=== PATIENT | female | born 1970 | race Caucasian/White ===

== ENCOUNTER 2020-09-22 09:26 | Emergency (ER) | payer BC ==
[~2020-09-22] VITALS: Ht 177.8 cm; Wt 160.6 kg
[2020-09-22 11:01] LABS: URINE BILIRUBIN NEGATIVE (Negative); URINE BLOOD TRACE (Negative); URINE CLARITY CLEAR; URINE COLOR YELLOW; URINE GLUCOSE-RANDOM* NEGATIVE (Negative); URINE KETONES NEGATIVE (Negative); URINE NITRITE-REFLEX NEGATIVE (Negative); URINE PROTEIN (DIPSTICK) TRACE (Negative); URINE UROBILINOGEN 0.2 E.U./dl (0.2-1.0)
[2020-09-22 11:03] LABS: ABSOLUTE NEUTROPHILS 6.8 thou/uL (1.4-8.2); BASOPHILS 0.8 % (0.0-2.0); EOSINOPHILS 1.2 % (0.0-3.0); HEMATOCRIT 35.3 % (37.0-47.0); HEMOGLOBIN 11.3 gm/dL (12.0-15.0); LYMPHOCYTES 21.8 % (24.0-44.0); MCH 23.9 pg (26.0-34.0); MCHC 31.9 g/dL (28.0-37.0); MCV 74.9 fL (80.0-100.0); MONOCYTES 7.1 % (1.0-8.0); PLATELET COUNT 272 thou/uL (150-400); POLYS 69.1 % (36.0-66.0); RBC 4.72 mil/uL (4.20-5.00); RDW 15.8 % (10.5-14.5); WBC 9.9 thou/uL (4.0-11.0)
[2020-09-22 11:04] LABS: URINE LEUKOCYTES-REFLEX 2+ (Negative)
[2020-09-22 11:04] LABS: CALCIUM 8.6 mg/dL (8.5-10.1); POTASSIUM 3.8 mmol/L (3.5-5.1)
[2020-09-22 11:12] LABS: ALBUMIN 3.2 g/dL (3.4-5.0); DIRECT BILIRUBIN 0.1 mg/dL (<0.1-0.2); TOTAL BILIRUBIN 0.5 mg/dL (0.2-1.0)
[2020-09-22 11:20] LABS: BACTERIA-REFLEX 1-9 Few /HPF (None Seen); CASTS None Seen /LPF (None Seen); SQUAMOUS >10 Many /LPF (0-3); URINE WBC-REFLEX 6-15 Few /HPF (0-5)
[2020-09-22 11:21] LABS: CRYSTALS None Seen /LPF (None Seen); URINE RBC 0-2 Rare /HPF (0-2)
[2020-09-22 13:27] VITALS: BP 160/102
== END 2020-09-22 13:29 | disposition home or self-care (01) ==
LOC: ER 09:26
PROVIDERS: Emergency Medicine
DX: R10.13 Epigastric pain (principal); I10 Essential (primary) hypertension; Z88.8 Allergy status to other drugs, medicaments and biological substances